=== PATIENT | female | born 1965 | race Asian ===

== ENCOUNTER 2021-08-08 00:11 | Emergency (ER) | payer BC ==
[~2021-08-08] VITALS: Ht 170.2 cm; Wt 85.7 kg
[2021-08-08 03:45] VITALS: BP 118/74; TEMP 98.3
== END 2021-08-08 03:45 | disposition home or self-care (01) ==
LOC: ED 00:11
DX: S10.83XA Contusion of other specified part of neck, initial encounter (principal); S00.83XA Contusion of other part of head, initial encounter; V86.95XA Unspecified occupant of 3- or 4- wheeled all-terrain vehicle (ATV) injured in nontraffic accident, initial encounter; Y92.89 Other specified places as the place of occurrence of the external cause
CPT/HCPCS: 96372; 99283; J1885